=== PATIENT | female | born 1970 | race Caucasian/White ===

== ENCOUNTER 2021-03-12 11:32 | Inpatient (IN) | payer OTHER ==
[~2021-03-12] VITALS: Ht 167.6 cm; Wt 119.9 kg
[~2021-03-12 11:32] MED LIST: KEFLEX250 MG PO
[2021-03-12 13:21] LABS: BASOPHIL 0.4 % (0-2); EOSINOPHIL 0 % (0-5); HCT 39.1 % (37.0-47.0); HGB 13.5 g/dl (12.5-16.0); LYMPHOCYTE 3.9 % (15-48); MCH 32.8 pg (25.0-31.0); MCHC 34.5 g/dL (32.0-36.0); MCV 94.9 fL (78.0-100.0); MONOCYTE 3.8 % (0-12); MPV 10.5 fL (6.0-9.5); NEUTROPHIL 86.8 % (41-80); NRBC 0; PLT 177 K/uL (150-400); RBC 4.12 M/uL (4.20-5.40); RDW 14.4 % (11.5-14.0)
[2021-03-12 13:35] LABS: ALBUMIN 2.9 g/dL (3.4-5.0); BILIRUBIN - TOTAL 0.8 mg/dL (0.2-1.0); BUN/CREAT RATIO (CALC) 8.3 RATIO; CREATININE 3.99 mg/dL (0.51-0.95); GLOBULIN (CALCULATION) 4.2 g/dL; TOTAL PROTEIN 7.1 g/dL (6.4-8.2)
[2021-03-12 14:20] LABS: BILIRUBIN 1+ mg/dL (NEGATIVE); BLOOD 3+ Ery/uL (NEGATIVE); GLUCOSE (U) NORMAL (NORMAL); LEUKOCYTES 3+ Leu/uL (NEGATIVE); NITRITE POSITIVE (NEGATIVE); PROTEIN 3+ mg/dL (NEGATIVE); UROBILINOGEN 0.2 mg/dL (0.2-1.0); pH 6.5 (5.0-9.0)
[2021-03-12 14:22] LABS: CLARITY TURBID (CLEAR); COLOR STRAW (YELLOW)
[2021-03-12 14:27] LABS: BACTERIA 4+; URINARY WBC TNTC
[2021-03-12 14:39] LABS: CORONAVIRUS 2019 SARS-COV-2 NEGATIVE (NEGATIVE); INFLUENZA A NAA NEGATIVE (NEGATIVE)
[2021-03-12 17:03] LABS: BUN/CREAT RATIO (CALC) 9.4 RATIO; CREATININE 3.93 mg/dL (0.51-0.95); POTASSIUM 3.6 mmol/L (3.5-5.1)
[2021-03-12 20:08] LABS: BUN/CREAT RATIO (CALC) 10.3 RATIO; CREATININE 3.8 mg/dL (0.51-0.95); POTASSIUM 4.5 mmol/L (3.5-5.1)
[2021-03-13 03:42] LABS: HCT 33.7 % (37.0-47.0); HGB 11.5 g/dl (12.5-16.0); MCHC 34.1 g/dL (32.0-36.0); MCV 96.6 fL (78.0-100.0); MPV 10.2 fL (6.0-9.5); RBC 3.49 M/uL (4.20-5.40); RDW 14.5 % (11.5-14.0); WBC 24.7 K/uL (4.0-10.5)
[2021-03-13 03:58] LABS: BUN/CREAT RATIO (CALC) 11.1 RATIO; CREATININE 4.05 mg/dL (0.51-0.95); MAGNESIUM 1.4 mg/dL (1.8-2.4); PHOSPHORUS 4.2 mg/dL (2.6-4.7)
[2021-03-13 04:02] LABS: POTASSIUM 2.9 mmol/L (3.5-5.1)
[2021-03-13 08:33] LABS: BUN/CREAT RATIO (CALC) 11.3 RATIO; CREATININE 3.82 mg/dL (0.51-0.95)
[2021-03-13 09:29] LABS: BUN/CREAT RATIO (CALC) 11.5 RATIO; CREATININE 3.81 mg/dL (0.51-0.95); POTASSIUM 3.1 mmol/L (3.5-5.1)
[2021-03-13] MEDS ORDERED: PROTONIX 40MG T40 MG PO (15:41)
[2021-03-13] MEDS ORDERED: RHEUMATREX2.5 MG PO (15:48)
[2021-03-13] MEDS ORDERED: LOPRESSOR50 MG PO (15:48)
[2021-03-13] MEDS ORDERED: LIPITOR 10MG TA10 MG PO (15:49)
[2021-03-13] MEDS ORDERED: HCTZ25 MG PO (15:49)
[2021-03-13] MEDS ORDERED: PREDNISONE5 MG PO (15:50)
[2021-03-13] MEDS ORDERED: MELOXICAM7.5 MG PO (15:51)
[2021-03-13] MEDS ORDERED: FENOFIBRATE30 MG PO (15:51)
[2021-03-13] MEDS ORDERED: FOLIC ACID1 MG PO (15:52)
[2021-03-13] MEDS ORDERED: CYCLOBENZAPRINE5 MG PO (15:52)
[2021-03-13 17:00] LABS: BASOPHIL 0.4 % (0-2); EOSINOPHIL 0.1 % (0-5); HCT 35.3 % (37.0-47.0); LYMPHOCYTE 2.4 % (15-48); MCH 33.1 pg (25.0-31.0); MCV 97.2 fL (78.0-100.0); MONOCYTE 3.5 % (0-12); MPV 11.6 fL (6.0-9.5); NRBC 0; RBC 3.63 M/uL (4.20-5.40); RDW 14.8 % (11.5-14.0)
[2021-03-13 17:21] LABS: BILIRUBIN - TOTAL 1.3 mg/dL (0.2-1.0); BUN/CREAT RATIO (CALC) 12.7 RATIO; CREATININE 3.94 mg/dL (0.51-0.95); GLOBULIN (CALCULATION) 3.9 g/dL; POTASSIUM 4.2 mmol/L (3.5-5.1); TOTAL PROTEIN 5.9 g/dL (6.4-8.2)
[2021-03-13 17:42] LABS: MAGNESIUM 2.4 mg/dL (1.8-2.4)
[2021-03-13 17:43] LABS: WBC 31.2 K/uL (4.0-10.5)
[2021-03-13 17:44] LABS: NEUTROPHIL 87.9 % (41-80); PLT 66 K/uL (150-400)
--- NOTE | 2021-03-14 05:31 | NUR ---
PATIENT HANDOFF / REPORT GIVEN TO [email or web address] FROM KIKO Lucas RN
[2021-03-14 05:35] LABS: BASOPHIL 0.4 % (0-2); EOSINOPHIL 0.1 % (0-5); HCT 33.3 % (37.0-47.0); HGB 11.4 g/dl (12.5-16.0); LYMPHOCYTE 2.3 % (15-48); MCH 33.2 pg (25.0-31.0); MCHC 34.2 g/dL (32.0-36.0); MCV 97.1 fL (78.0-100.0); MONOCYTE 4.2 % (0-12); NRBC 0; PLT 54 K/uL (150-400); RBC 3.43 M/uL (4.20-5.40); RDW 14.9 % (11.5-14.0)
[2021-03-14 05:37] LABS: NEUTROPHIL 85.5 % (41-80)
[2021-03-14 05:43] LABS: INR 1.52 (0.9-1.2); PROTHROMBIN TIME 17.6 SECONDS (11.8-13.4); PTT 50.5 SECONDS (24.4-34.7)
[2021-03-14 05:53] LABS: ALBUMIN 1.8 g/dL (3.4-5.0); BILIRUBIN - TOTAL 1.4 mg/dL (0.2-1.0); BUN/CREAT RATIO (CALC) 13.6 RATIO; CREATININE 3.9 mg/dL (0.51-0.95); GLOBULIN (CALCULATION) 4.2 g/dL; MAGNESIUM 2.3 mg/dL (1.8-2.4); PHOSPHORUS 5.6 mg/dL (2.6-4.7); POTASSIUM 4.1 mmol/L (3.5-5.1)
--- NOTE | 2021-03-14 20:12 | NUR ---
AT 1950 [facility] CALLED. SHE STATED THAT HER DIRECTOR OF REVENUE CYCLE MANAGEMENT DID NOT THINK THAT THE PT. NEEDS CRRT. SHE WAS UPDATED ON SOME LABS AND VITALS. SAID SHE WOULD WORK ON GETTING A BED AND HOPEFULLY CALL ME BACK SHORTLY. ER,RN
--- NOTE | 2021-03-15 02:23 | NUR ---
MARTHA FROM [facility] CALLED FOR UPDATE ON PT. MARTHA SAID THAT THE PT. APPEARS TO BE PRETTY STABLE ACCORDING TO VITALS. THEY WILL ESCALATE TO [facility] IN THE MORNING AND WORK ON GETTING HER A BED TOMORROW. ER,RN
[2021-03-15 06:11] LABS: BUN/CREAT RATIO (CALC) 18.3 RATIO; CREATININE 3.56 mg/dL (0.51-0.95); POTASSIUM 3.5 mmol/L (3.5-5.1)
--- NOTE | 2021-03-15 17:26 | NUR ---
03/15/21 Ms. Cheema is a of 5 years. She has custody of 13 and 15 y/o grandchildren. The children are currently staying with their paternal grandmother. Ms. Marquis was independent in the home and community. She is employed [employer].- Ms. Cheema continues to work through the grieving process. She was provided with a brochure of counseling services for future reference.
[2021-03-16 05:56] LABS: BUN/CREAT RATIO (CALC) 20.3 RATIO; CREATININE 2.96 mg/dL (0.51-0.95); MAGNESIUM 2.7 mg/dL (1.8-2.4); PHOSPHORUS 3.9 mg/dL (2.6-4.7); POTASSIUM 3.4 mmol/L (3.5-5.1)
[2021-03-16 06:00] LABS: BASOPHIL 0.3 % (0-2); EOSINOPHIL 0 % (0-5); HCT 34.9 % (37.0-47.0); HGB 12.1 g/dl (12.5-16.0); LYMPHOCYTE 7.1 % (15-48); MCH 32.6 pg (25.0-31.0); MCHC 34.7 g/dL (32.0-36.0); MCV 94.1 fL (78.0-100.0); MONOCYTE 7.9 % (0-12); MPV 12.2 fL (6.0-9.5); NEUTROPHIL 80.2 % (41-80); NRBC 0.1; RBC 3.71 M/uL (4.20-5.40); RDW 15.1 % (11.5-14.0); WBC 20.9 K/uL (4.0-10.5)
[2021-03-16 06:42] LABS: PLT 80 K/uL (150-400)
[2021-03-16 16:10] LABS: HEPARIN INDUCED PLATELET AB 0.076 OD (0.000-0.400)
[2021-03-17 06:27] LABS: BASOPHIL 0.6 % (0-2); EOSINOPHIL 0.2 % (0-5); HCT 33.5 % (37.0-47.0); HGB 11.5 g/dl (12.5-16.0); MCHC 34.3 g/dL (32.0-36.0); MCV 93.3 fL (78.0-100.0); MONOCYTE 9.2 % (0-12); MPV 11.8 fL (6.0-9.5); NEUTROPHIL 71.4 % (41-80); NRBC 0; PLT 112 K/uL (150-400); RBC 3.59 M/uL (4.20-5.40); RDW 15.2 % (11.5-14.0)
[2021-03-17 06:34] LABS: WBC 24.9 K/uL (4.0-10.5)
[2021-03-17 06:43] LABS: BUN/CREAT RATIO (CALC) 21.9 RATIO; CREATININE 2.6 mg/dL (0.51-0.95); POTASSIUM 3.1 mmol/L (3.5-5.1)
[2021-03-17 16:00] LABS: CORONAVIRUS 2019 SARS-COV-2 NEGATIVE (NEGATIVE); INFLUENZA A NAA NEGATIVE (NEGATIVE)
[2021-03-18 07:51] LABS: BASOPHIL 0.4 % (0-2); EOSINOPHIL 0.4 % (0-5); HCT 32.3 % (37.0-47.0); HGB 11.1 g/dl (12.5-16.0); MCH 32.7 pg (25.0-31.0); MCHC 34.4 g/dL (32.0-36.0); MCV 95.3 fL (78.0-100.0); MONOCYTE 7.8 % (0-12); MPV 11.7 fL (6.0-9.5); NEUTROPHIL 74.1 % (41-80); NRBC 0; PLT 136 K/uL (150-400); RBC 3.39 M/uL (4.20-5.40); RDW 15.6 % (11.5-14.0)
[2021-03-18 08:22] LABS: BUN/CREAT RATIO (CALC) 20.7 RATIO; CREATININE 2.27 mg/dL (0.51-0.95); MAGNESIUM 2.2 mg/dL (1.8-2.4); POTASSIUM 3.2 mmol/L (3.5-5.1)
--- NOTE | 2021-03-18 14:12 | NUR ---
ORDER PLACED FOR MID-LINE. I EXPLAINED THE PROCEDURE TO THE PATIENT, AND GAINED HER VERBAL CONSENT. USING ULTRASOUND TECHNIQUE, I VISUALIZED THE LEFT BRACHIAL VEIN. I PREPPED THE SITE BY CLEANING, USING STERILE TECHNIQUE. I THEN DONNED STERILE GOWN AND GLOVES AND PLACED THE STERILE DRAPE OVER THE PATIENTS LEFT ARM. I ACCESSED THE VEIN USING ULTRASOUND TECHNIQUE, WHEN BLOOD RETURN WAS NOTED, I INSERTED THE GUIDE WIRE AND THEN RETRACTED THE NEEDLE. I THEN PLACED THE MID-LINE OVER THE GUIDE WIRE AND ADVANCED INTO THE SKIN, ONCE MID-LINE INTRODUCER WAS INSERTED TO THE PINK CAP, I REMOVED THE GUIDEWIRE AND INTERNAL MID-LINE INTRODUCER. BLOOD RETURN WAS PRESENT, AND MID-LINE FLUSHED WITH EASE. MID-LINE SECURED TO THE PATIENTS LEFT UPPER ARM USING THE STAT LOCK AND STERILE DRESSING. TOURNIQUET WAS REMOVED AFTER NEEDLE ACCESSED THE VEIN. PATIENT TOLERATED THE PROCEDURE WELL. DR CHA AND PRIMARY RN, XI, NOTIFIED THAT THE MID-LINE WAS READY FOR USE. CENTRAL LINE IN LEFT FEMORAL REGION REMOVED. TWO SUTURES REMOVED, CENTRAL LINE PULLED OUT IN ONE LAWSON MOTION, PRESSURE HELD WITH STERILE GAUZE FOR 2 MIN AND THEN PRESSURE DRESSING APPLIED. PATIENT TOLERATED WELL. NO BLEEDING NOTED ON THE DRESSING.
--- NOTE | 2021-03-18 14:55 | NUR ---
03/18/21 Ms. Cheema will require IV Rocephine following discharge. She prefers HH, However, [facility], [facility], nor [facility] will accept patient's insurance. Ms. Cheema was informed and agrees to Outpatient infusion. Johana, MS RN, will set up outpatient infusion. A report was given to Dr. Rcihards.
--- NOTE | 2021-03-19 05:58 | NUR ---
0001 UNABLE TO FLUSH PICC LINE, ATTEMPTED TO FLUSH WITH HEPARIN BUT REMAINS UNABLE TO FLUSH. REPORTED TO CAR WORKER HELPER AND GUN PERFORATOR LOADER.
[2021-03-19 06:51] LABS: BASOPHIL 0.3 % (0-2); EOSINOPHIL 0.6 % (0-5); HCT 31.5 % (37.0-47.0); HGB 10.8 g/dl (12.5-16.0); LYMPHOCYTE 13.3 % (15-48); MCH 32.2 pg (25.0-31.0); MCHC 34.3 g/dL (32.0-36.0); MONOCYTE 5.8 % (0-12); MPV 11.6 fL (6.0-9.5); NEUTROPHIL 73.7 % (41-80); NRBC 0; PLT 149 K/uL (150-400); RBC 3.35 M/uL (4.20-5.40); RDW 15.8 % (11.5-14.0)
[2021-03-19 07:13] LABS: BUN/CREAT RATIO (CALC) 17.6 RATIO; CREATININE 1.76 mg/dL (0.51-0.95); MAGNESIUM 1.8 mg/dL (1.8-2.4); POTASSIUM 2.6 mmol/L (3.5-5.1)
[2021-03-19 07:18] LABS: WBC 21.5 K/uL (4.0-10.5)
[2021-03-20 06:30] LABS: BASOPHIL 0.2 % (0-2); EOSINOPHIL 0.8 % (0-5); HCT 32.2 % (37.0-47.0); HGB 11.1 g/dl (12.5-16.0); LYMPHOCYTE 15.6 % (15-48); MCH 32.6 pg (25.0-31.0); MCHC 34.5 g/dL (32.0-36.0); MCV 94.4 fL (78.0-100.0); MONOCYTE 4.2 % (0-12); MPV 11.6 fL (6.0-9.5); NRBC 0; PLT 187 K/uL (150-400); RBC 3.41 M/uL (4.20-5.40); RDW 15.4 % (11.5-14.0)
[2021-03-20 06:42] LABS: WBC 18.2 K/uL (4.0-10.5)
[2021-03-20 06:56] LABS: BUN/CREAT RATIO (CALC) 13.7 RATIO; CREATININE 1.53 mg/dL (0.51-0.95); POTASSIUM 2.8 mmol/L (3.5-5.1)
[2021-03-20] MEDS ORDERED: POTASSIUM CHLO20 ME1 PO ×2 (10:07→10:59)
[2021-03-20] MEDS ORDERED: DIFLUCAN150 MG PO ×2 (10:07→10:59)
[2021-03-20] MEDS ORDERED: NORCO 5-325 TA1 EACH PO ×2 (10:07→10:59)
[2021-03-20] MEDS ORDERED: ROCEPHIN 22 GM/50 ML IV (10:07)
== END 2021-03-20 13:05 | disposition home or self-care (01) | DRG 871 ==
LOC: FER 11:32 → FICU 03-13 11:18 → FTCU 03-15 16:20 → FMS 03-17 11:48 → FTCU 03-17 14:05 → FMS 03-17 14:41 → FTCU 03-17 14:41 → FMS 03-17 16:40
PROVIDERS: Emergency Medicine; Internal Medicine; Internal Medicine Nephrology; ADMIT Internal Medicine
PROC: B24BZZZ Ultrasonography of Heart with Aorta (ICD-10-PCS; principal; 2021-03-13)
PROC: 3E033XZ Introduction of Vasopressor into Peripheral Vein, Percutaneous Approach (ICD-10-PCS; 2021-03-13)
PROC: 05HY33Z Insertion of Infusion Device into Upper Vein, Percutaneous Approach (ICD-10-PCS; 2021-03-19)
DX: A41.51 Sepsis due to Escherichia coli [E. coli] (principal); R65.21 Severe sepsis with septic shock; I21.A1 Myocardial infarction type 2; G93.41 Metabolic encephalopathy; N17.0 Acute kidney failure with tubular necrosis; J96.01 Acute respiratory failure with hypoxia; N10 Acute pyelonephritis; B37.0 Candidal stomatitis; E87.2 Acidosis; E87.6 Hypokalemia; D69.6 Thrombocytopenia, unspecified; I10 Essential (primary) hypertension; M06.9 Rheumatoid arthritis, unspecified; T38.0X5A Adverse effect of glucocorticoids and synthetic analogues, initial encounter; T36.95XA Adverse effect of unspecified systemic antibiotic, initial encounter; Z20.822 Contact with and (suspected) exposure to COVID-19; F17.210 Nicotine dependence, cigarettes, uncomplicated; N18.9 Chronic kidney disease, unspecified; I12.9 Hypertensive chronic kidney disease with stage 1 through stage 4 chronic kidney disease, or unspecified chronic kidney disease; E66.01 Morbid (severe) obesity due to excess calories; Z82.49 Family history of ischemic heart disease and other diseases of the circulatory system; Z79.52 Long term (current) use of systemic steroids; Z79.899 Other long term (current) drug therapy
CPT/HCPCS: 36415; 36600; 70450; 71045; 71250; 80048; 80053; 81001; 82550; 82570; 82803; 83605; 83735; 83880; 84100; 84145; 84300; 84484; 85025; 85610; 85730; 86022; 87040; 87076; 87077; 87088; 87186; 93005; 94010; 96365; 96366; 96367; 96368; 96375; 96376; 97161; 97166; 97530; 97535; J0360; J0696; J1170; J1642; J1644; J1650; J1720; J2060; J2405; J2543; J3475; J3480; J7030; J7050; J7060; J7512; U0002